=== PATIENT | male | born 1970 | race African-American/Black ===

== ENCOUNTER → 2017-04-21 | Day surgery (SDC) | payer OTHER ==
[~2017-04-21] VITALS: Ht 175.3 cm; Wt 76.2 kg
--- NOTE | 2017-04-21 11:20 | Operative Report ---
Operative/Inv Procedure Report Surgery Date: 04/21/17 Name of Procedure: Exam under anesthesia with partial fistulotomy Pre-Operative Diagnosis: Anal fistula Post-Operative Diagnosis: Anal fistula Estimated Blood Loss: scant Surgeon/Media Operator: FLOR PERAZA JR, DO Anesthesia: local monitored anesthesi, block Monitors: Per routine Drains: None Specimens: Fistula tract Complications: None Condition: Good Operative Indication: This is a 46-year-old male who presented to me with a draining impressive perirectal abscess. He states one year earlier he developed a painful perianal swelling in the same quadrant. Was given oral antibiotics and problem resolves without surgical intervention or spontaneous drainage. At the time he had presented to me he had several weeks of symptoms. He went to an urgent care center was given oral antibiotics. The swollen area spontaneously drained a large amount of pus and blood and he presented to our office. He appeared adequately drained at that time so we gave him instructions for wound care and follow-up a few weeks later. At this point the swelling had resolved but he still had a draining sinus which was draining a moderate amount of pus. This was likely an fistula, so he was scheduled for exam under anesthesia Operative/Procedure Note Note: Patient was taken into the operating room placed in the prone jackknife position on the operating room table. IV sedation was initiated and once the patient was comfortable the gluteal cleft was taped in the abducted position. The perineum was then prepped and draped in usual fashion and then anal block was performed. The anal block was performed with 0.5% Marcaine and epinephrine. A total of 30 mL was injected. There was a small hard subcutaneous lump in the right anal margin 4 cm from anal verge. A small incision was made here and out a half a cc of purulent drainage was expressed. I attempted to probe this area and it did not appear to track anywhere. A Fansler operating proctoscope was inserted into the anal canal. The fistula site was in the left lateral anal margin once again about 4 cm from the anal verge. The fistula was probed and tracked around the anus to the posterior midline. A Jelco catheter was inserted into the tract and peroxide was injected into the tract. No internal opening was revealed. I then unroofed the fistula tract over the probe from the external opening to the posterior midline. I could not find the internal opening with peroxide or crypt hook. I was certain about a false passage and thereby complicating his problem so we stopped here. A small biopsy was taken from the fistula tract which included skin and subcutaneous tissue. The perineum was cleansed and dried. Bacitracin ointment and a bulky dressing was applied. The patient was converted to supine position. He tolerated the procedure well was taken to recovery area in good condition. At the end of this case all needle sponges and measurements were accounted for.
== END ==
LOC: STS 01:25
DX: K60.3 Anal fistula (principal); F17.200 Nicotine dependence, unspecified, uncomplicated; Z79.82 Long term (current) use of aspirin
CPT/HCPCS: J1885; J2250